=== PATIENT | male | born 1990 ===

== ENCOUNTER 2016-05-01 16:05 | Emergency (ER) | payer OTHER ==
[2016-05-01 16:33] VITALS: BP 177/89; PULSE 108; RESP 18; TEMP 97.9; O2SAT 100
== END 2016-05-01 18:10 | disposition home or self-care (01) ==
LOC: ED 16:05
DX: S62.306A Unspecified fracture of fifth metacarpal bone, right hand, initial encounter for closed fracture (principal); W19.XXXA Unspecified fall, initial encounter
CPT/HCPCS: 29130; 73130; 99283

== ENCOUNTER 2016-05-04 08:36 | Emergency (ER) | payer OTHER ==
[2016-05-04 08:37] VITALS: O2SAT 100
[2016-05-04 09:03] VITALS: BP 163/105; PULSE 89; RESP 22; TEMP 97.5
== END 2016-05-04 09:15 | disposition home or self-care (01) ==
LOC: ED 08:36
DX: G89.11 Acute pain due to trauma (principal); S62.308D Unspecified fracture of other metacarpal bone, subsequent encounter for fracture with routine healing
CPT/HCPCS: 99282

== ENCOUNTER 2018-05-08 15:25 | Emergency (ER) | payer BC, OTHER ==
[2018-05-08 15:26] VITALS: O2SAT 100
[2018-05-08 15:50] VITALS: TEMP 98
[2018-05-08 16:36] VITALS: BP 134/81; PULSE 87; RESP 16
== END 2018-05-08 16:22 | disposition home or self-care (01) ==
LOC: ED 15:25
DX: S63.601A Unspecified sprain of right thumb, initial encounter (principal); W00.0XXA Fall on same level due to ice and snow, initial encounter
CPT/HCPCS: 73130; 99282; 99283